=== PATIENT | female | born 1990 | race American Indian/Alaskan Native ===

== ENCOUNTER 2018-03-08 06:42 | Day surgery (SDC) | payer OTHER ==
[2018-02-25 09:37] VITALS: BMI 45.5
[2018-03-08] MEDS ORDERED: ceFAZolin IV 1 gm in Dextrose 1 GM/50 ML BAG IVPB ONE ×2 (06:57→08:10)
[2018-03-08] MEDS ORDERED: Acetaminophen-Codeine 300/30 mg Tab PO PRN (08:08)
[2018-03-08] MEDS ORDERED: Midazolam 2 MG/2 ML VIAL ONE (08:12)
[2018-03-08] MEDS ORDERED: Propofol 10 mg/ml Inj (20 ML) ONE ×2 (08:12→08:39)
[2018-03-08] MEDS ORDERED: Succinylcholine Chloride 20 mg/ml Syr (5 ml) IV ONE (08:13)
[2018-03-08] MEDS ORDERED: Dextrose 5%/0.45% NS 1,000 ML IV SCH (08:15)
[2018-03-08] MEDS ORDERED: HYDROmorphone 0.5 mg/0.5 ml ISec IVP PRN (09:19)
[2018-03-08 12:13] VITALS: BP 121/75; PULSE 87; RESP 16; TEMP 97.6; O2SAT 98
--- NOTE | 2018-03-08 13:55 | OP ---
PROCEDURE DATE: 03/08/2018 PREOPERATIVE DIAGNOSIS: Right vocal cord polyp. POSTOPERATIVE DIAGNOSIS: Right vocal cord polyp. SIGNIFICANT FINDING: Right vocal cord polyp. DESCRIPTION OF PROCEDURE: The patient was brought in the room, placed in supine position, anesthesia was initiated through an ET tube. Shoulder roll was placed, neck extended. The patient was draped in usual manner. Direct laryngoscope was inserted into the oral cavity, passed to the oropharynx, hypopharynx, the pharyngeal wall, base of tongue, vallecula, epiglottis, AE folds, false cords, true cords, arytenoids, piriform sinuses were brought into view. Vocal cord polyp was noted in right vocal cord. The direct laryngoscope was suspended on the Angela stringed instrument repairer the usual manner while viewing the right vocal cord. Microscope was brought into place and used to view the right vocal cord. Micro instruments were used to dissect the polyp off the vocal cord, preserving as much mucosa as possible. Bleeding was controlled with time. The direct laryngoscope was taken off suspension and removed. The microscope was taken out of position. The patient was taken off anesthesia and taken to the recovery room in stable manner. Armin Norwood MD
== END 2018-03-08 12:08 | disposition home or self-care (01) ==
LOC: C.SDS 06:42
PROVIDERS: ATTEND Otolaryngology
DX: J38.1 Polyp of vocal cord and larynx (principal)
CPT/HCPCS: 31541; 88305; J0690; J2001; J2250; J2704; J3010

== ENCOUNTER 2018-04-05 18:39 | Emergency (ER) | payer OTHER ==
[2018-04-05 18:39] VITALS: BMI 45.5
[2018-04-05 18:48] VITALS: TEMP 98.2
--- NOTE | 2018-04-05 20:07 | C.PDOC ---
History Of Present Illness 28 y/o female, w/PMhx of asthma, presents to the ER complaining of double vision which has been present for the past 1 week. Patient states that when she wakes up in the morning, she feels as though her right eye is not aligned with her left eye. Patient reports that she sees 2 images. She notes that these symptoms began when she returned from [place]. She states that she had a mild headache on her last day in [place], she attributes the headache to drinking ETOH and "partying." Currently, patient denies having headache, CP, SOB, nausea, vomiting, motor weakness, and numbness. Time Seen by Provider: 04/05/18 19:52 Chief Complaint (Nursing): Dizziness/Lightheaded History Per: Patient History/Exam Limitations: no limitations Onset/Duration Of Symptoms: Days Current Symptoms Are (Timing): Still Present Severity: Moderate Past Medical History Reviewed: Historical Data, Nursing Documentation, Vital Signs Vital Signs: Last Vital Signs Temp 98.2 F 04/05/18 18:45 Pulse 90 04/05/18 18:45 Resp 15 04/05/18 18:45 BP 149/86 04/05/18 18:45 Pulse Ox 99 04/05/18 18:45 - Medical History PMH: Asthma (HOSPITALIZED ABOUT 2014), Gall Bladder Disease Denies: Chronic Kidney Disease Surgical History: Cholecystectomy (01/2012) Family History: States: No Known Family Hx - Social History Hx Tobacco Use: No Hx Alcohol Use: Yes Hx Substance Use: No - Immunization History Hx Tetanus Toxoid Vaccination: No Hx Influenza Vaccination: No Hx Pneumococcal Vaccination: No Review Of Systems Except As Marked, All Systems Reviewed And Found Negative. Constitutional: Negative for: Fever, Chills Eyes: Positive for: Vision Change Cardiovascular: Negative for: Chest Pain Respiratory: Negative for: Shortness of Breath Gastrointestinal: Negative for: Nausea, Vomiting Physical Exam - Physical Exam Additional Physical Exam Comments: Constitutional: No acute distress. Head: Normocephalic. Atraumatic. Eyes: PERRL. ENT: Moist mucous membranes. Neck: Supple. Cardiovascular: Regular rate. Radial pulse 2+ bilaterally. Chest: No tenderness. Respiratory: Clear to auscultation bilaterally. GI: Soft. Nontender. Nondistended. Back: No CVA tenderness. Musculoskeletal: No tenderness or swelling of extremities. Skin: No rash. Neurologic: Alert, Oriented x 3. Cranial nerves II-XII intact except right eye medial gaze palsy. Sensation to light touch intact bilaterally. Motor 5/5 x 4. Gait normal.Romberg negative. Finger to nose. ED Course And Treatment - Laboratory Results Result Diagrams: 04/05/18 20:23 04/05/18 20:23 O2 Sat by Pulse Oximetry: 99 (RA) Pulse Ox Interpretation: Normal Medical Decision Making Medical Decision Making: Plan: --Labs --CXR --CT-Head --UA --IV Fluids CT-Head EXAM: CT Head without Intravenous Contrast. CLINICAL HISTORY: BLURED VISION. HEADACHE TECHNIQUE: Axial computed tomography images of the head/brain without intravenous contrast. COMPARISON: None provided. FINDINGS: BRAIN No acute intraparenchymal hemorrhage. No mass lesion. No CT evidence for acute territorial infarct. No midline shift or extra-axial collections. VENTRICLES: No hydrocephalus. ORBITS: The orbits are unremarkable. SINUSES AND MASTOIDS: The paranasal sinuses and mastoid air cells are clear. BONES: No fracture. SOFT TISSUES: Unremarkable. IMPRESSION: No acute intracranial abnormality. Discussed case with Dr. Knox Neuro process control supervisor, likely MS. Patient informed MRI not available at [facility] overnight or on weekends, Dr. Knox recommends discharge, f/u Neuro, requires MRI. Disposition - Disposition Referrals: Ivelisse Knox MD [Staff Provider] - Disposition: HOME/ ROUTINE Disposition Time: 23:03 Condition: STABLE Instructions: Double Vision Forms: [facility] (Danish) - Clinical Impression Clinical Impression: Diplopia - Scribe Statement The provider has reviewed the documentation as recorded by the Laura Reagan Provider Attestation: All medical record entries made by the Scribe were at my direction and personally dictated by me. I have reviewed the chart and agree that the record accurately reflects my personal performance of the history, physical exam, medical decision making, and the department course for this patient. I have also personally directed, reviewed, and agree with the discharge instructions and disposition.
[2018-04-05] MEDS ORDERED: Sodium Chloride 0.9% 1,000 ML IV SCH (20:15)
[2018-04-05 20:29] LABS: BASO # 0.1 K/uL (0.0-0.2); BASO % 0.9 % (0.0-2.0); EOS # 0.4 K/uL (0.0-0.7); EOS % 3.8 % (0.0-4.0); HEMOGLOBIN 12.8 g/dL (11.0-16.0); LYMPH # 4.4 K/uL (1.0-4.3); LYMPH % 46.2 % (20.0-40.0); MEAN CELL VOLUME 84.4 fL (81.0-99.0); MEAN CORPUSCULAR HEMOGLOBIN 28.7 pg (27.0-31.0); MEAN PLATELET VOLUME 8.2 fL (7.2-11.7); MONO # 0.5 K/uL (0.0-0.8); MONO % 5.4 % (0.0-10.0); NEUT # 4.1 K/uL (1.8-7.0); NEUT % 43.7 % (50.0-75.0); RBC 4.47 Mil/uL (3.80-5.20); RED CELL DISTRIBUTION WIDTH 13.5 % (11.5-14.5); WHITE BLOOD COUNT 9.4 K/uL (4.8-10.8)
[2018-04-05 20:37] LABS: INR 1.1; PROTHROMBIN TIME 12.2 SECONDS (9.7-12.2)
[2018-04-05 20:45] LABS: ALB/GLOB RATIO 1.3 (1.0-2.1); ALBUMIN 4.2 g/dL (3.5-5.0); BLOOD UREA NITROGEN 14 mg/dL (7-17); CALCIUM 8.8 mg/dl (8.6-10.4); GFR NON-AFRICAN AMERICAN > 60; HDL CHOLESTEROL 48 mg/dL (30-70)
[2018-04-05 20:46] LABS: HCG,QUALITATIVE URINE NEGATIVE (NEGATIVE)
[2018-04-05 20:59] LABS: SQUAMOUS EPITHIAL 7 /hpf (0-5); URINE BILIRUBIN NEGATIVE (NEGATIVE); URINE BLOOD NEGATIVE (NEGATIVE); URINE CLARITY Hazy (Clear); URINE COLOR Yellow (YELLOW); URINE GLUCOSE (UA) NORMAL (Normal); URINE PROTEIN NEGATIVE (NEGATIVE)
[2018-04-05 20:59] LABS: ALT/SGPT 22 U/L (9-52); AST/SGOT 31 U/L (14-36); LDL CHOLESTEROL 115 mg/dL (0-129)
[2018-04-05 21:06] VITALS: O2SAT 99
[2018-04-05 21:10] LABS: URINE BACTERIA RARE (<OCC); URINE LEUKOCYTE ESTERASE TRACE Leu/uL (Negative)
[2018-04-05 22:12] VITALS: BP 137/77; PULSE 81; RESP 16
--- NOTE | 2018-04-06 08:12 | CT ---
Date of service: 04/05/2018 PROCEDURE: CT HEAD WITHOUT CONTRAST. HISTORY: double vision, R eye doesn't move medially COMPARISON: 06/25/2014. TECHNIQUE: Axial computed tomography images were obtained through the head/brain without intravenous contrast. Radiation dose: Total exam DLP = 1113.12 mGy-cm. This CT exam was performed using one or more of the following dose reduction techniques: Automated exposure control, adjustment of the mA and/or kV according to patient size, and/or use of iterative reconstruction technique. FINDINGS: HEMORRHAGE: No intracranial hemorrhage. BRAIN: Deutsch-white matter differentiation is preserved. There is no mass, mass effect or abnormal extra-axial fluid collection. There is no territorial infarction. The midline sagittal structures are normal. VENTRICLES: The ventricles are normal in size, shape and configuration. CALVARIUM: There is no calvarial fracture or extracranial soft tissue swelling. PARANASAL SINUSES: Predominantly clear. MASTOID AIR CELLS: Predominantly clear. OTHER FINDINGS: None. IMPRESSION: No acute intracranial abnormality. If there is a persistent focal neurologic deficit and an ongoing clinical concern for acute infarction, an MRI of the brain without intravenous contrast would be a more sensitive modality for evaluation of hyperacute/acute ischemic infarction. A preliminary report was provided by [facility].
--- NOTE | 2018-04-06 12:02 | RAD ---
Date of service: 04/05/2018 HISTORY: Diplopia COMPARISON: 02/25/2018 TECHNIQUE: Chest PA and lateral FINDINGS: LINES AND TUBES: None. LUNG AND PLEURA: The lungs are well inflated and clear. No pleural effusion or pneumothorax. HEART AND MEDIASTINUM: The heart is not enlarged. No aortic atherosclerotic calcification present. The hilar and mediastinal contours are within normal limits. SKELETAL STRUCTURES: The bony structures are within normal limits for the patient's age. VISUALIZED UPPER ABDOMEN: Normal. OTHER FINDINGS: None. IMPRESSION: No active pulmonary disease.
== END 2018-04-05 23:10 | disposition home or self-care (01) ==
LOC: C.ER 18:39
DX: H53.2 Diplopia (principal)

== ENCOUNTER 2018-04-25 23:59 | Emergency (ER) | payer OTHER ==
[2018-04-25 23:59] VITALS: BMI 45.5
[2018-04-26 00:05] VITALS: BP 132/84; PULSE 83; RESP 18; TEMP 98.3; O2SAT 95
--- NOTE | 2018-04-26 00:32 | C.PDOC ---
History Of Present Illness 28 year old female presents to the ED c/o dental pain for the past 3 days. Patient states pain worsened tonight. Patient feels right sided cheek is swollen. Patient states she took OTC medication with minimal relief. Patient denies fever, chills, nausea, vomit, headache, injury, fall, trauma. Time Seen by Provider: 04/26/18 00:07 Chief Complaint (Nursing): Dental Pain History Per: Patient History/Exam Limitations: no limitations Onset/Duration Of Symptoms: Days (3) Current Symptoms Are (Timing): Still Present Quality: Positive for: "Pain" Recent travel outside of the [place]: No Additional History Per: Patient Past Medical History Reviewed: Historical Data, Nursing Documentation, Vital Signs Vital Signs: Last Vital Signs Temp 98.3 F 04/26/18 00:02 Pulse 83 04/26/18 00:02 Resp 18 04/26/18 00:02 BP 132/84 04/26/18 00:02 Pulse Ox 95 04/26/18 00:02 - Medical History PMH: Asthma (HOSPITALIZED ABOUT 2014), Gall Bladder Disease Denies: Chronic Kidney Disease Surgical History: Cholecystectomy (01/2012) Family History: States: Unknown Family Hx - Social History Hx Tobacco Use: No Hx Alcohol Use: Yes Hx Substance Use: No - Immunization History Hx Tetanus Toxoid Vaccination: No Hx Influenza Vaccination: No Hx Pneumococcal Vaccination: No Review Of Systems Constitutional: Negative for: Fever, Chills Eyes: Negative for: Vision Change ENT: Positive for: Mouth Pain, Mouth Swelling Respiratory: Negative for: Cough, Shortness of Breath Gastrointestinal: Negative for: Nausea, Vomiting, Abdominal Pain Skin: Negative for: Rash Neurological: Negative for: Headache Physical Exam - Physical Exam Appears: Non-toxic, No Acute Distress Skin: Normal Color, Warm, Dry Head: Atraumatic, Normacephalic, No Swelling Eye(s): bilateral: Normal Inspection Oral Mucosa: Moist, Other (swelling inner right cheek extending to right lower posterior gum) Tongue: No Swelling Lips: No Swelling Teeth: Tender To Palpation (right lower posterior molar ) Gingiva: Swelling (right lower gingiva), Tender (right lower) Throat: Normal, No Erythema, No Exudate Neck: Normal ROM, Supple Chest: Symmetrical Cardiovascular: Rhythm Regular Respiratory: Normal Breath Sounds, No Rhonchi, No Wheezing Neurological/Psych: Oriented x3, Normal Speech Gait: Steady ED Course And Treatment O2 Sat by Pulse Oximetry: 95 (ON RA) Pulse Ox Interpretation: Normal Progress Note: Plan: - Clindamycin 300 mg PO. - Motrin 800 mg PO. Patient was given medication in the ED. Patient was advised to follow up with Dentist for further evaluation. Disposition Counseled Patient/Family Regarding: Diagnosis, Need For Followup, Rx Given - Disposition Disposition: HOME/ ROUTINE Disposition Time: 00:30 Condition: STABLE Additional Instructions: Please follow up with Dentist Take medications as directed Return to ER if facial swelling, tongue swelling, unable to swallow or worse Prescriptions: Clindamycin [Cleocin] 300 mg PO Q6 #28 cap Ibuprofen [Motrin Tab] 800 mg PO QID #30 tab Instructions: Tooth Abscess (DC) Forms: [facility] ([place]se) - Clinical Impression Clinical Impression: Dental abscess - PA / HEALTH INFORMATION SPECIALIST / Resident Statement MD/DO has reviewed & agrees with the documentation as recorded. - Scribe Statement The provider has reviewed the documentation as recorded by the Scribe Gurpreet Victor All medical record entries made by the Scribe were at my direction and personally dictated by me. I have reviewed the chart and agree that the record accurately reflects my personal performance of the history, physical exam, medical decision making, and the department course for this patient. I have also personally directed, reviewed, and agree with the discharge instructions and dis position.
== END 2018-04-26 00:39 | disposition home or self-care (01) ==
LOC: C.ER 23:59
DX: K04.7 Periapical abscess without sinus (principal)